=== PATIENT | male | born 1955 | race Caucasian/White ===

== ENCOUNTER 2023-01-26 09:52 | Outpatient (AMB) | payer BC, SELFPAY ==
[2023-01-26 09:55] VITALS: BP 152/82; PULSE 84; O2SAT 99; BMI 29.0
--- NOTE | 2023-01-26 09:55 | A.OFFPC_ITS ---
Vital Signs 01/26/23 09:55 Height 5 ft 7 in Weight 185 lb BMI 29.0 BP 152/82 H Blood Pressure Location Lt brachial Position Sitting Pulse 84 Pulse Source Pulse Oximeter Pulse Oximetry (%) 99 Oxygen Delivery Method Room Air Intake Visit Reasons: COMMERCIAL PILOT/BP Intake Note: Patient is here as a new patient, concerned about high blood pressure. Allergies No Known Allergies Allergy (Verified 01/26/23 10:00) Tobacco use date assessed: 01/26/23 Fall risk assessment: No Falls in past year Last assessed Fall Risk: 01/26/23 Dental Screening Dental Screen Date: 01/26/23 Did you have a dental visit in the last 12 months?: Yes Did you have a dental problem in the last 6 months where you did not have access to dental care?: No Was dental information given to patient?: Patient has dentist HPI COMMERCIAL PILOT/BP HPI Details New patient Prior PCP:?Dr. Quarles Last office visit/CPE: 2020 Acute issue(s): High blood pressures -BP today 152/82. ED -Has trialed viagra before. PMHx: DM, HLD, HTN SurgHx: Tonsils FHx: Denies SocHx: Nonsmoker, EtOH 3 beers daily. No drugs. [facility] Medical History (Updated 01/26/23 @ 10:58 by Sergo Lakhani) High cholesterol Glaucoma Surgical History (Updated 01/26/23 @ 10:05 by Sissy Sawyer CMA) History of tonsillectomy (Updated 01/26/23 @ 10:10 by Sissy Sawyer CMA) Household Members: None Housing: House Are you a primary eye care professional to a significant other at home: No Do you presently have visiting nurse or other home services: No 75 years or older and lives alone: No Alcohol intake: current Patient Tobacco Use Status: Never used Tobacco e-Cigarette/Vaping Use: Never Used Substance Use Type: Marijuana service: No Current occupational status: retired Cognitive needs: No Hearing needs: No Vision needs: Yes (Patient wears glasses.) Questionnaire PHQ-9 Over the last 2 weeks, how often have you been bothered by any of the following problems? 1. Little interest or pleasure in doing things: not at all 2. Feeling down, depressed, or hopeless: not at all 3. Trouble falling or staying asleep, or sleeping too much: not at all 4. Feeling tired or having little energy: not at all 5. Poor appetite or overeating: not at all 6. Feeling bad about yourself - or that you are a failure or have let yourself or your family down: not at all 7. Trouble concentrating on things, such as reading the newspaper or watching television: not at all 8. Moving or speaking so slowly that other people could have noticed. Or the opposite - being so fidgety or restless that you have been moving around a lot more than usual: not at all 9. Thoughts that you would be better off or of hurting yourself in some way: not at all Total score: 0 Source: Developed by Drs. Atilio Vega, Clarita Dorantes, Bello Irene and colleagues, with an educational donnell from [employer]. Thrive Questionnaire Date Thrive assessed: 01/26/23 I am a: Patient What is your living situation today?: I have a steady place to live Within the past 12 months, did the food you bought not last and you didn't have the money to get more?: Never true Within the past 12 months, did you worry whether your food would run out before you got money to buy more?: Never true Do you have trouble paying for medicines?: No Do you have trouble getting transportation to medical appointments?: No Do you have trouble paying your heating and electricity bill?: No Do you have trouble taking care of your child, family member or friend?: No Do you have trouble with day-to-day activities such as bathing, preparing meals, shopping, managing finances, etc.?: No Are you currently unemployed and looking for a job?: No Are you interested in more education?: No AUDIT C Alcohol Use Questionnaire (AUDIT-C) 1. How often do you have a drink containing alcohol?: 4 or more times a week 2. How many drinks containing alcohol do you have on a typical day when you are drinking?: 1 or 2 3. How often do you have six or more drinks on one occasion?: Never Total Score: 4 ADILENE-7 AMB Questionnaire ADILENE-7 Date ADILENE - 7 assessed: 01/26/23 Feeling nervous, anxious, or on edge: 0 = Not at all Not being able to stop or control worryin = Not at all Worrying too much about different things: 0 = Not at all Trouble relaxin = Not at all Being so restless that it is hard to sit still: 0 = Not at all Becoming easily annoyed or irritable: 0 = Not at all Feeling afraid as if something awful might happen: 0 = Not at all Total ADILENE-7 score (0-4 normal; 5-9 mild; 10-14 moderate; 15-21 severe): 0 Source: Developed by Drs. Atilio Vega, Clarita Dorantes, Bello Irene and colleagues, with an educational donnell from [employer]. Review of Systems Const Denies chills, Denies fatigue, Denies fever(s), Denies headache(s) and Denies weakness ENT Denies dizziness and Denies headache(s) Card Denies chest pain, Denies lightheadedness, Denies dyspnea and Denies other (Palpitations) Resp Denies cough, Denies dyspnea, Denies wheezing and Denies other ( shortness of breath) Musc Denies numbness and Denies tingling Neuro Denies dizziness, Denies headache(s), Denies numbness, Denies tingling, Denies paresthesias and Denies weakness Psych Denies anxiety and Denies depression Endo Denies fatigue Aller/Immun Denies wheezing Physical exam (Primary Care) Vital Signs: Last Vital Signs Pulse 84 01/26/23 09:55 BP 152/82 H 01/26/23 09:55 Pulse Ox 99 01/26/23 09:55 Oxygen Delivery Method Room Air 01/26/23 09:55 BMI result Body Mass Index 29.0 Tobacco/Smoking Status: Tobacco use Status Tobacco use date assessed 01/26/23 01/26/23 10:16 Patient Tobacco Use Status Never used Tobacco 01/26/23 10:16 e-Cigarette/Vaping Use Never Used 01/26/23 10:16 PHQ-9: PHQ-9 Score PHQ-9: Total score 0 01/26/23 10:46 Thrive Assessment: Date of Thrive Assessment Date Thrive assessed 01/26/23 01/26/23 10:16 Const General: no acute distress and well developed Nutritional Appearance: well nourished Orientation/consciousness: patient oriented x3 HENMT Head: Yes normocephalic and Yes atraumatic Eyes General: appearance normal, both eyes and all related structures Pupils: Equal, round and reactive pupils present EOM: EOMs intact bilaterally Resp Effort & Inspection: normal respiratory effort Auscultation: clear to auscultation bilaterally Cardio Rate: regular rate Rhythm: regular rhythm Heart sounds: S1 normal heart sound present, S2 normal heart sound present, no gallops, no murmurs and no rubs Neuro General: patient oriented x3 and gait normal Cranial nerves: Yes Equal, round and reactive pupils present Psych Affect: normal affect Office Procedures EKG [id number], Complete Assessment and Plan Assessment & Plan (1) Hypertension: Code(s): I10 - Essential (primary) hypertension Plan: Is?high?today.??Goal?is?less?than?140/90 EKG?shows?normal?sinus?rhythm?with?s inus?arrhythmia.??Left?axis?deviation.??No?ST-T-wave?changes. Will?give?him?a?script?for?lisinopril Encouraged?weight?loss?and?salt/sodium?avoidance (2) Hyperlipidemia: Code(s): E78.5 - Hyperlipidemia, unspecified Plan: History?of?hyperlipidemia?and?patient?had?used?pravastatin?in?the?past. Recheck?lipids (3) Diabetes: Code(s): E11.9 - Type 2 diabetes mellitus without complications Plan: Patient?notes?history?of?diabetes?or?elevated?fasting?blood?sugars?though?he?garcia s?note?he?had?had?A1c?test?around?6% Check?fasting?blood?sugar?and?A1c. He?notes?that?he?had?had?loose?stools?and?abdominal?discomfort?with?metformin. May?need?to?use?other?medications?if?blood?sugars?need?pharmacotherapy (4) Erectile dysfunction: Code(s): N52.9 - Male erectile dysfunction, unspecified Plan: Can?trial?sildenafil (5) Alcohol use: Code(s): Z78.9 - Other specified health status Plan: Drinking?about?3?beers?per?day?and?I?asked?him?to?wean?this?down.??Patient?agree s?to?try?to?decrease?this (6) Laboratory exam ordered as part of routine general medical examination: Code(s): Z00.00 - Encounter for general adult medical examination without abnormal findings Orders: Orders Lipid Panel Today Z00.00 - Encounter for general adult medical examination without abnormal findings Prostate Specific Antigen Scr Today Z12.5 - Encounter for screening for malignant neoplasm of prostate AMB EKG-In Office Today I10 - Essential (primary) hypertension Comprehensive [place]. Panel Fast Today Z00.00 - Encounter for general adult medical examination without abnormal findings Complete Blood Count Auto Diff Today Z00.00 - Encounter for general adult medical examination without abnormal findings Microalbumin, Random (w Creat) Today I10 - Essential (primary) hypertension TSH reflex Free T4 Today Z00.00 - Encounter for general adult medical examination without abnormal findings UA and rflx microscopic Today Z00.00 - Encounter for general adult medical examination without abnormal findings Hemoglobin A1c Today E11.9 - Type 2 diabetes mellitus without complications, R73.01 - Impaired fasting glucose Medications: New sildenafil administer 30 minutes to 4 hours before activity 25 mg PO DAILY PRN 6 tabs 3RF sexual activity 30 days lisinopril 20 mg PO DAILY 30 days 30 tabs 0RF Coding Level of Care Code New Pt Level 4 (40284) Diagnoses Hypertension I10 Hyperlipidemia E78.5 Diabetes E11.9 Erectile dysfunction N52.9 Alcohol use Z78.9 Laboratory exam ordered as part of routine general medical examination Z00.00 CPT Codes EKG - CPT: 18452-[id number], Complete ([id number])
== END 2023-01-26 11:38 | disposition home or self-care (01) ==
PROVIDERS: PCP Family Medicine; Visit Provider Family Medicine
DX: I10 Essential (primary) hypertension (principal); E78.5 Hyperlipidemia, unspecified; E11.9 Type 2 diabetes mellitus without complications; N52.9 Male erectile dysfunction, unspecified; Z78.9 Other specified health status; Z00.00 Encounter for general adult medical examination without abnormal findings
CPT/HCPCS: 93000; 99204

== ENCOUNTER 2023-03-11 11:22 | Outpatient (REF) | payer BC, SELFPAY ==
[2023-03-11 14:23] LABS: MANUAL DIFF FLAG NO
[2023-03-11 14:30] LABS: Basophils Absolute Auto 0.1 X10*3/uL (0.0-0.2); Eosinophils Absolute Auto 0.1 X10*3/uL (0.0-0.4); Eosinophils Percent Auto 0.9 % (0-4); Hemoglobin 15.5 g/dl (14.0-18.0); Imm Gran Abs Auto 0.04 X10*3/uL (0.00-0.03); Imm Gran Pct Auto 0.5 % (0.0-0.4); Lymphocytes Absolute Auto 1.8 X10*3/uL (1.2-4.9); Mean Corpuscular HGB Conc 33.7 g/dl (31.0-36.0); Mean Corpuscular Hemoglobin 30.9 pg (27.0-33.0); Mean Corpuscular Volume 91.6 fL (80.0-98.0); Mean Platelet Volume 11.1 fL (9.4-12.4); Monocytes Absolute Auto 0.8 X10*3/uL (0.1-1.2); Monocytes Percent Auto 9.8 % (2-11); Neutrophils Percent Auto 64.8 % (45-73); Platelet Count 436 X10*3/uL (160-400); Red Blood Count 5.02 X10*6/uL (4.60-5.80); Red Cell Distribution Width 13.6 % (11.0-16.0); White Blood Count 7.7 X10*3/uL (4.8-10.8)
[2023-03-11 14:32] LABS: Estimated Average Glucose 177 mg/dL; Hemoglobin A1c % 7.8 % (<6.0)
[2023-03-11 14:50] LABS: Alanine Aminotransferase 22 U/L (0-40); Albumin Level 4.4 g/dL (3.5-5.0); Alkaline Phosphatase 69 U/L (39-117); Anion Gap 17 (12-20); Aspartate Amino Transferase 20 U/L (5-37); Bilirubin Total 0.7 mg/dL (0.0-1.0); Blood Urea Nitrogen 9 mg/dL (9-16); Calcium 10.2 mg/dL (8.4-10.2); Carbon Dioxide 24 mmol/L (22-29); Chloride 102 mmol/L (96-108); Cholesterol 209 mg/dL (<200); Estimated Glomerular Filt Rate 52; Glucose Fasting 213 mg/dL (60-99); HDL Cholesterol 42 mg/dL (>40); LDL Cholesterol Calculated 132 mg/dL (<100); Potassium 4.7 mmol/L (3.3-5.1); Sodium 138 mmol/L (135-145); Total Protein 7.7 g/dL (6.5-8.0); Triglycerides 178 mg/dL (<150)
[2023-03-11 14:54] LABS: Prostate Specific Antigen Scr 2.23 ng/mL (<0.05-4.0)
[2023-03-11 15:07] LABS: TSH reflex Free T4 1.28 uIU/mL (0.32-4.0)
== END 2023-03-11 11:23 | disposition home or self-care (01) ==
LOC: HO.WFDLDS 11:22
PROVIDERS: Visit Provider Family Medicine
DX: Z00.00 Encounter for general adult medical examination without abnormal findings (principal); Z12.5 Encounter for screening for malignant neoplasm of prostate; E11.9 Type 2 diabetes mellitus without complications
CPT/HCPCS: 36415; 80053; 80061; 83036; 84153; 84443; 85025

== ENCOUNTER 2023-05-19 08:52 | Outpatient (AMB) | payer BC, SELFPAY ==
[2023-05-19 08:59] VITALS: BP 136/72; PULSE 88; O2SAT 98; BMI 29.5
--- NOTE | 2023-05-19 08:59 | MHC.PC.OV ---
Vital Signs 05/19/23 08:59 Height 5 ft 7 in Weight 188 lb 2 oz BMI 29.5 BP 136/72 Blood Pressure Location Lt brachial Position Sitting Pulse 88 Pulse Source Pulse Oximeter Pulse Oximetry (%) 98 Oxygen Delivery Method Room Air Intake Visit Reasons: CPE Intake Note: Patient is here for a physical, and needs dental paperwork filled out. Allergies No Known Allergies Allergy (Verified 05/19/23 09:11) Tobacco use date assessed: 05/19/23 Fall risk assessment: No Falls in past year Last assessed Fall Risk: 05/19/23 Dental Screening Dental Screen Date: 05/19/23 Did you have a dental visit in the last 12 months?: Yes Did you have a dental problem in the last 6 months where you did not have access to dental care?: No Was dental information given to patient?: Patient has dentist HPI CPE HPI Details 67 y/o male presents for a CPE with f/u labs and health maintenance. Labs were drawn 03/11/23. Reviewed labs with pt. A1c 7.8%. Triglycerides 178. TC 209. LDL 132. HDL 42. PFSH Medical History High cholesterol Glaucoma Surgical History History of tonsillectomy Social History Household Members: None Housing: House Are you a primary pharmacy customer care specialist to a significant other at home: No Do you presently have visiting nurse or other home services: No 75 years or older and lives alone: No Alcohol intake: current Comment: 3 beers a day. Patient Tobacco Use Status: Never used Tobacco e-Cigarette/Vaping Use: Never Used Substance Use Type: Marijuana service: No Current occupational status: retired Cognitive needs: No Hearing needs: No Vision needs: Yes (Patient wears glasses.) Questionnaire PHQ-9 Over the last 2 weeks, how often have you been bothered by any of the following problems? 1. Little interest or pleasure in doing things: not at all 2. Feeling down, depressed, or hopeless: not at all 3. Trouble falling or staying asleep, or sleeping too much: not at all 4. Feeling tired or having little energy: not at all 5. Poor appetite or overeating: not at all 6. Feeling bad about yourself - or that you are a failure or have let yourself or your family down: not at all 7. Trouble concentrating on things, such as reading the newspaper or watching television: not at all 8. Moving or speaking so slowly that other people could have noticed. Or the opposite - being so fidgety or restless that you have been moving around a lot more than usual: not at all 9. Thoughts that you would be better off or of hurting yourself in some way: not at all Total score: 0 Source: Developed by Drs. Atilio Vega, Clarita Dorantes, Bello Irene and colleagues, with an educational donnell from [employer]. Thrive Questionnaire Date Thrive assessed: 05/19/23 I am a: Patient What is your living situation today?: I have a steady place to live Within the past 12 months, did the food you bought not last and you didn't have the money to get more?: Never true Within the past 12 months, did you worry whether your food would run out before you got money to buy more?: Never true Do you have trouble paying for medicines?: No Do you have trouble getting transportation to medical appointments?: No Do you have trouble paying your heating and electricity bill?: No Do you have trouble taking care of your child, family member or friend?: No Do you have trouble with day-to-day activities such as bathing, preparing meals, shopping, managing finances, etc.?: No Are you currently unemployed and looking for a job?: No Are you interested in more education?: No THRIVE Score: 0 AUDIT C Alcohol Use Questionnaire (AUDIT-C) 1. How often do you have a drink containing alcohol?: 4 or more times a week 2. How many drinks containing alcohol do you have on a typical day when you are drinking?: 1 or 2 3. How often do you have six or more drinks on one occasion?: Never Total Score: 4 ADILEEN-7 AMB Questionnaire ADILENE-7 Date ADILENE - 7 assessed: 05/19/23 Feeling nervous, anxious, or on edge: 0 = Not at all Not being able to stop or control worryin = Not at all Worrying too much about different things: 0 = Not at all Trouble relaxin = Not at all Being so restless that it is hard to sit still: 0 = Not at all Becoming easily annoyed or irritable: 0 = Not at all Feeling afraid as if something awful might happen: 0 = Not at all Total ADILENE-7 score (0-4 normal; 5-9 mild; 10-14 moderate; 15-21 severe): 0 Source: Developed by Drs. Atilio Vega, Clariat Dorantes, Bello Irene and colleagues, with an educational donnell from [employer]. Review of Systems Const Denies chills, Denies fatigue, Denies fever(s), Denies headache(s) and Denies weakness Eyes Denies change in vision ENT Denies dizziness, Denies headache(s), Denies hearing loss, Denies nasal congestion, Denies sinus pain, Denies sinus pressure and Denies sore throat Card Denies chest pain, Denies lightheadedness, Denies dyspnea and Denies other (palpitations) Resp Denies cough, Denies dyspnea and Denies wheezing GI Denies abdominal pain, Denies melena, Denies hematochezia, Denies change in bowel habits, Denies dyspepsia and Denies nausea Denies hematuria and Denies dysuria Musc Denies abnormal gait, Denies myalgias, Denies arthralgias, Denies numbness and Denies tingling Skin/Breast Denies rash, Denies unusual bruising and Denies wounds Neuro Denies abnormal gait, Denies dizziness, Denies headache(s), Denies memory loss, Denies numbness, Denies Sensory deficit (Neuro), Denies tingling and Denies weakness Psych Denies anxiety, Denies depression and Denies memory loss Endo Denies cold intolerance, Denies fatigue, Denies heat intolerance, Denies polydipsia and Denies polyuria North/Lymph Denies easy bleeding and Denies easy bruising Aller/Immun Denies wheezing Physical exam (Primary Care) Vital Signs: Last Vital Signs Pulse 88 05/19/23 08:59 BP 136/72 05/19/23 08:59 Pulse Ox 98 05/19/23 08:59 Oxygen Delivery Method Room Air 05/19/23 08:59 BMI result Body Mass Index 29.5 Tobacco/Smoking Status: Tobacco use Status Tobacco use date assessed 05/19/23 05/19/23 09:11 Patient Tobacco Use Status Never used Tobacco 05/19/23 09:11 e-Cigarette/Vaping Use Never Used 05/19/23 09:11 PHQ-9: PHQ-9 Score PHQ-9: Total score 0 05/19/23 09:36 Thrive Assessment: Date of Thrive Assessment Date Thrive assessed 05/19/23 05/19/23 09:11 Const General: no acute distress, well developed, alert and awake Nutritional Appearance: well nourished Orientation/consciousness: patient oriented x3 HENMT Head: Yes normocephalic and Yes atraumatic Ears: hearing grossly normal bilaterally and TM's normal bilaterally General nose exam: Normal external nose present and Normal nares present Mouth: Normal oral and palatal mucosa present and moist mucous membranes Teeth and gingiva: dentition normal Throat: Yes posterior oropharynx normal Eyes General: appearance normal, both eyes and all related structures Pupils: Equal, round and reactive pupils present and Pupil accommodation reflex normal EOM: EOMs intact bilaterally Neck Neck: Yes normal visual inspection, Yes no lymphadenopathy and Yes trachea midline Thyroid: Thyroid normal Carotids: no bruits Lymphatic: no lymphadenopathy noted Chest Chest palpation & inspection: normal inspection of the chest Resp Effort & Inspection: normal respiratory effort Auscultation: clear to auscultation bilaterally Cardio Rate: regular rate Rhythm: regular rhythm Heart sounds: S1 normal heart sound present, S2 normal heart sound present, no gallops, no murmurs and no rubs Bruits: no abdominal aortic bruits and no carotid bruits GI Palpation (GI): No Abdominal aortic bruit present, Soft to palpation, nontender, No hepatosplenomegaly present and No Rebound tenderness present Auscultation: normal bowel sounds General: Yes no CVA tenderness Back/Spine/Pelvis Back: no CVA tenderness Cervical Spine: cervical ROM normal and No Cervical spine tenderness Thoracic/Lumbar Spine: thoraco-lumbar ROM normal, No pain with thoraco-lumbar ROM, No thoracic spinal tenderness and No lumbar spinal tenderness Skin Lesions: no lesions Rashes: no rashes Trauma: no lacerations or abrasions Wounds: no wounds Nails: normal Neuro General: patient oriented x3 Cranial nerves: Yes Equal, round and reactive pupils present Cognition (Neuro): normal cognition Gait exam (Neuro): Normal gait present Motor exam (neuro): 5/5 motor strength present throughout Sensory Exam: No Sensory deficit (Neuro) Deep tendon reflexes (DTR's): Right patellar reflex intensity grade: 2+ and Left patellar reflex intensity grade: 2+ Extrem General: Yes normal to inspection and No edema Psych Appearance: grossly normal Affect: normal affect Attitude: cooperative Thought process: Normal thought process present Assessment and Plan Assessment & Plan (1) Adult general medical examination: Code(s): Z00.00 - Encounter for general adult medical examination without abnormal findings Plan: 67-year-old?male?presents?for?complete?physical?exam (2) Diabetes: Code(s): E11.9 - Type 2 diabetes mellitus without complications Plan: A1c?7.8%.??Goal?is?less?than?7.0% He?had?been?on?metformin?before?and?we?will?restart?this. (3) Hyperlipidemia: Code(s): E78.5 - Hyperlipidemia, unspecified Plan: LDL?cholesterol?too?high?for?patient?with?diabetes. Start?atorvastatin (4) Hypertension: Code(s): I10 - Essential (primary) hypertension Plan: Blood?pressure?is?improved?from?last?check.??Patient's?blood?pressures?in?the?community?are?still?going?too?high. Will?change?to?lisinopril?hydrochlorothiazide (5) Cerumen debris on tympanic membrane: Code(s): H61.20 - Impacted cerumen, unspecified ear Plan: Can?try?Debrox?drops (6) Screening for colon cancer: Code(s): Z12.11 - Encounter for screening for malignant neoplasm of colon Plan: Patient?declines?colonoscopy Ordered?Cologuard?test (7) Screening for prostate cancer: Code(s): Z12.5 - Encounter for screening for malignant neoplasm of prostate Plan: PSA?was?within?normal?limits Orders: Orders Hemoglobin A1c Today E11.9 - Type 2 diabetes mellitus without complications, R73.01 - Impaired fasting glucose Comprehensive [place]. Panel Fast Today I10 - Essential (primary) hypertension, Z00.00 - Encounter for general adult medical examination without abnormal findings Lipid Panel Today E78.5 - Hyperlipidemia, unspecified, Z00.00 - Encounter for general adult medical examination without abnormal findings Microalbumin, Random (w Creat) Today I10 - Essential (primary) hypertension Referrals Cologuard Test Z12.11 - Encounter for screening for malignant neoplasm of colon, Z12.12 - Encounter for screening for malignant neoplasm of rectum Medications: New atorvastatin 20 mg PO BEDTIME 90 days 90 tabs 2RF lisinopril-hydrochlorothiazide 20-12.5 mg 1 tab PO DAILY 90 days 90 tabs 2RF metformin 250 mg (1/2 x 500 mg) PO BID 90 days 90 tabs 2RF Discontinued lisinopril Discontinued Reason: Doctor's Order 20 mg PO DAILY 30 days 30 tabs 0RF Coding Level of Care Code Est Pt Level 4 (02358) Est Pt Prev Care >65y(68316) Diagnoses Adult general medical examination Z00.00 Diabetes E11.9 Hyperlipidemia E78.5 Hypertension I10 Cerumen debris on tympanic membrane H61.20 Screening for colon cancer Z12.11 Screening for prostate cancer Z12.5
== END 2023-05-19 10:09 | disposition home or self-care (01) ==
PROVIDERS: PCP Family Medicine; Visit Provider Family Medicine
DX: Z00.00 Encounter for general adult medical examination without abnormal findings (principal); E11.9 Type 2 diabetes mellitus without complications; E78.5 Hyperlipidemia, unspecified; I10 Essential (primary) hypertension
CPT/HCPCS: 99397

== ENCOUNTER 2023-08-11 12:06 | Outpatient (REF) | payer BC, SELFPAY ==
[2023-08-11 14:28] LABS: Appearance Urine Clear; Color Urine Yellow; Glucose Urine UA Negative (Negative); Leukocyte Esterase Urine Negative (Negative); Nitrite Urine Negative (Negative); PH 5.5 (5.0-9.0); Urine Blood Negative (Negative); Urine Ketones Negative (Negative); Urine Protein Negative (Neg-Trace)
[2023-08-11 14:37] LABS: Estimated Average Glucose 166 mg/dL; Hemoglobin A1c % 7.4 % (<6.0)
[2023-08-11 14:45] LABS: Alanine Aminotransferase 19 U/L (0-40); Albumin Level 4.3 g/dL (3.5-5.0); Alkaline Phosphatase 60 U/L (39-117); Anion Gap 12 (12-20); Aspartate Amino Transferase 15 U/L (5-37); Bilirubin Total 0.7 mg/dL (0.0-1.0); Blood Urea Nitrogen 15 mg/dL (9-16); Carbon Dioxide 26 mmol/L (22-29); Chloride 102 mmol/L (96-108); Cholesterol 122 mg/dL (<200); Estimated Glomerular Filt Rate 48; Glucose Fasting 146 mg/dL (60-99); HDL Cholesterol 48 mg/dL (>40); LDL Cholesterol Calculated 55 mg/dL (<100); Potassium 4.6 mmol/L (3.3-5.1); Sodium 135 mmol/L (135-145); Total Protein 7.2 g/dL (6.5-8.0); Triglycerides 97 mg/dL (<150)
[2023-08-11 14:51] LABS: Creatinine Urine 61.84 mg/dL; Microalbumin Urine < 5.0 mg/L
== END 2023-08-11 12:07 | disposition home or self-care (01) ==
LOC: HO.WFDLDS 12:06
PROVIDERS: Visit Provider Family Medicine
DX: Z00.00 Encounter for general adult medical examination without abnormal findings (principal); I10 Essential (primary) hypertension; E78.5 Hyperlipidemia, unspecified; R73.01 Impaired fasting glucose; E11.9 Type 2 diabetes mellitus without complications
CPT/HCPCS: 36415; 80053; 80061; 81003; 82570; 83036

== ENCOUNTER 2023-09-08 08:19 | Outpatient (AMB) | payer BC, SELFPAY ==
--- NOTE | 2023-09-08 08:27 | MHC.PC.OV ---
Vital Signs 09/08/23 08:31 Height 5 ft 7 in Weight 187 lb BMI 29.3 BP 120/62 Blood Pressure Location Lt brachial Position Sitting Respiration 12 Pulse 93 Pulse Source Pulse Oximeter Pulse Oximetry (%) 99 Oxygen Delivery Method Room Air Intake Visit Reasons: f/u diabetes, hypertension Intake Note: Patient is here to follow up for hypertension and diabetes, patient's last A1C was on 08/11/23 with a result of 7.4. 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 Had started him on artovastatin and metformin last office visit. Last A1c 08/11/23 7.4%. Blood pressure today 120/62. He is on lisinopril-hydrochlorothiazide 20-12.5mg daily. Labs were drawn 08/11/23. Reviewed labs with pt. Triglycerides improved from 178 to 97. TC 209 to 122. LDL 132 to 55. HDL 48. [facility] Medical History High cholesterol Glaucoma Surgical History History of tonsillectomy Social History Household Members: None Housing: House Are you a primary animal care giver to a significant other at home: No Do you presently have visiting nurse or other home services: No 75 years or older and lives alone: No Alcohol intake: current Comment: 3 beers a day. Patient Tobacco Use Status: Never used Tobacco e-Cigarette/Vaping Use: Never Used Substance Use Type: Marijuana service: No Current occupational status: retired Cognitive needs: No Hearing needs: No Vision needs: Yes (Patient wears glasses.) Questionnaire Thrive Questionnaire Date Thrive assessed: 05/19/23 ADILENE-7 AMB Questionnaire ADILENE-7 Date ADILENE - 7 assessed: 05/19/23 Source: Developed by Drs. Atilio Vega, Clarita Dorantes, Bello Irene and colleagues, with an educational donnell from [employer]. Review of Systems Const Denies chills, Denies fatigue, Denies fever(s), Denies headache(s) and Denies weakness ENT Denies dizziness and Denies headache(s) Card Denies dyspnea Resp Denies cough, Denies dyspnea, Denies wheezing and Denies other (shortness of breath) Musc Denies numbness and Denies tingling Neuro Denies dizziness, Denies headache(s), Denies numbness, Denies tingling and Denies weakness Psych Denies anxiety and Denies depression Endo Denies fatigue Aller/Immun Denies wheezing Physical exam (Primary Care) Vital Signs: Last Vital Signs Pulse 93 09/08/23 08:31 Resp 12 09/08/23 08:31 BP 120/62 09/08/23 08:31 Pulse Ox 99 09/08/23 08:31 Oxygen Delivery Method Room Air 09/08/23 08:31 BMI result Body Mass Index 29.3 Tobacco/Smoking Status: Tobacco use Status Tobacco use date assessed 05/19/23 09/08/23 08:28 Patient Tobacco Use Status Never used Tobacco 09/08/23 08:28 e-Cigarette/Vaping Use Never Used 09/08/23 08:28 Thrive Assessment: Date of Thrive Assessment Date Thrive assessed 05/19/23 09/08/23 08:28 Const General: well developed; No acute distress Nutritional Appearance: well nourished Orientation/consciousness: patient oriented x3 [facility] Head: Yes normocephalic and Yes atraumatic Eyes General: appearance normal, both eyes and all related structures Pupils: Equal, round and reactive pupils present EOM: EOMs intact bilaterally Resp Effort & Inspection: normal respiratory effort Neuro General: patient oriented x3 and gait normal Cranial nerves: Yes Equal, round and reactive pupils present Psych Affect: normal affect Assessment and Plan Assessment & Plan (1) Diabetes: Code(s): E11.9 - Type 2 diabetes mellitus without complications Plan: She?has?improved?from?7.8%?to?7.5%?with?addition?of?250?mg?of?metformin. Mild?increase?in?creatinine?level?but?still?less?than?1.5 - will?monitor Encouraged?diet?lower?in?sugars?and?starches Will?ask?the?nurse?navigator?to?discuss?diet?with?patient (2) Hyperlipidemia: Code(s): E78.5 - Hyperlipidemia, unspecified Plan: Lipids?are?much?improved?and?at?goal Continue?atorvastatin (3) Hypertension: Code(s): I10 - Essential (primary) hypertension Plan: Blood?pressure?is?controlled.??Goal?is?less?than?140/90 Continue?current?medication Mild?increase?in?creatinine?level?but?less?than?1.5 - will?monitor Advised?patient?increase?hydration (4) Screening for colon cancer: Code(s): Z12.11 - Encounter for screening for malignant neoplasm of colon Plan: Has?not?gotten?Cologuard?test?yet?but?I?encouraged?him?to?do?so (5) Erectile dysfunction: Code(s): N52.9 - Male erectile dysfunction, unspecified Plan: Patient?tried?sildenafil?25?mg?daily?and?did?not?think?it?helped?much Will?increase?to?50?mg?daily If?not?helping?new?dose,?will?switch?to?[facility] Orders: Orders Comprehensive [place]. Panel Fast Today E11.9 - Type 2 diabetes mellitus without complications, Z00.00 - Encounter for general adult medical examination without abnormal findings Hemoglobin A1c Today E11.9 - Type 2 diabetes mellitus without complications, R73.01 - Impaired fasting glucose Lipid Panel Today E78.5 - Hyperlipidemia, unspecified, Z00.00 - Encounter for general adult medical examination without abnormal findings Referrals Nurse Navigator Referral E11.9 - Type 2 diabetes mellitus without complications Medications: Changed From sildenafil administer 30 minutes to 4 hours before activity 25 mg PO DAILY 30 days PRN 6 tabs 3RF sexual activity To sildenafil administer 30 minutes to 4 hours before activity 50 mg PO DAILY 30 days PRN 10 tabs 3RF sexual activity Coding Level of Care Code Est Pt Level 4 (74104) Diagnoses Diabetes E11.9 Hyperlipidemia E78.5 Hypertension I10 Screening for colon cancer Z12.11 Erectile dysfunction N52.9
[2023-09-08 08:31] VITALS: BP 120/62; PULSE 93; RESP 12; O2SAT 99; BMI 29.3
== END 2023-09-08 09:03 | disposition home or self-care (01) ==
PROVIDERS: PCP Family Medicine; Visit Provider Family Medicine
DX: E11.9 Type 2 diabetes mellitus without complications (principal); E78.5 Hyperlipidemia, unspecified; I10 Essential (primary) hypertension; Z12.11 Encounter for screening for malignant neoplasm of colon; N52.9 Male erectile dysfunction, unspecified
CPT/HCPCS: 99214

== ENCOUNTER 2023-12-22 13:23 | Outpatient (REF) | payer BC, SELFPAY ==
[2023-12-22 14:38] LABS: Estimated Average Glucose 163 mg/dL; Hemoglobin A1C 171.5978 umol/L; Hemoglobin A1c % 7.3 % (<6.0); Total Hemoglobin (HGBA1C) 3038.8671 umol/L
[2023-12-22 14:55] LABS: Alanine Aminotransferase 24 U/L (0-40); Albumin Level 4.6 g/dL (3.5-5.0); Alkaline Phosphatase 59 U/L (39-117); Anion Gap 11 (12-20); Aspartate Amino Transferase 20 U/L (5-37); Bilirubin Total 0.5 mg/dL (0.0-1.0); Blood Urea Nitrogen 24 mg/dL (9-16); Calcium 10.3 mg/dL (8.4-10.2); Carbon Dioxide 26 mmol/L (22-29); Chloride 104 mmol/L (96-108); Cholesterol 137 mg/dL (<200); Estimated Glomerular Filt Rate 33; Glucose Fasting 146 mg/dL (60-99); HDL Cholesterol 47 mg/dL (>40); LDL Cholesterol Calculated 63 mg/dL (<100); Sodium 136 mmol/L (135-145); Total Protein 7.4 g/dL (6.5-8.0); Triglycerides 138 mg/dL (<150)
[2023-12-22 18:25] LABS: Creatinine Urine 103.38 mg/dL; Microalbum/Creatinine Ratio Ur 6.7 ug/mg cr (<30)
== END 2023-12-22 13:24 | disposition home or self-care (01) ==
LOC: HO.WFDLDS 13:23
PROVIDERS: Visit Provider Family Medicine
DX: Z00.00 Encounter for general adult medical examination without abnormal findings (principal); E11.9 Type 2 diabetes mellitus without complications; E78.5 Hyperlipidemia, unspecified; I10 Essential (primary) hypertension
CPT/HCPCS: 36415; 80053; 80061; 82043; 82570; 83036

== ENCOUNTER 2024-01-12 08:25 | Outpatient (AMB) | payer BC, SELFPAY ==
--- NOTE | 2024-01-12 08:34 | A.OFFPC_ITS ---
Vital Signs 01/12/24 08:40 Height 5 ft 7 in Weight 197 lb 6 oz BMI 30.9 BP 130/66 Blood Pressure Location Rt brachial Position Sitting Respiration 14 Pulse 84 Pulse Source Pulse Oximeter Temp 98.5 F Temp Source Oral Pulse Oximetry (%) 97 Oxygen Delivery Method Room Air Intake Visit Reasons: check up blood pressure/sugar Intake Note: f/u for B/P & DM Allergies No Known Allergies Allergy (Verified 01/12/24 08:39) Tobacco use date assessed: 05/19/23 Dental Screening Dental Screen Date: 05/19/23 HPI check up blood pressure/sugar HPI Details 68 y/o male presents to f/u HTN, sugars. BP today 130/66, 84p. He is on lisinopril-HCTZ 20-12.5mg daily. He is on metformin 250mg b.i.d. for his diabetes. Labs drawn 12/22/23. Reviewed labs with pt. Creatinine level worsened from 1.45 to 2.01. A1c 7.3%. Triglycerides 138. TC 137. LDL 63. HDL 47. Has complaints of muscle cramps. [facility] Medical History High cholesterol Glaucoma Surgical History History of tonsillectomy Social History Household Members: None Housing: House Are you a primary day care teacher to a significant other at home: No Do you presently have visiting nurse or other home services: No 75 years or older and lives alone: No Alcohol intake: current Comment: 3 beers a day. Patient Tobacco Use Status: Never used Tobacco e-Cigarette/Vaping Use: Never Used Substance Use Type: Marijuana service: No Current occupational status: retired Cognitive needs: No Hearing needs: No Vision needs: Yes (Patient wears glasses.) Questionnaire PHQ-9 Over the last 2 weeks, how often have you been bothered by any of the following problems? 1. Little interest or pleasure in doing things: not at all 2. Feeling down, depressed, or hopeless: not at all 3. Trouble falling or staying asleep, or sleeping too much: not at all 4. Feeling tired or having little energy: not at all 5. Poor appetite or overeating: not at all 6. Feeling bad about yourself - or that you are a failure or have let yourself or your family down: not at all 7. Trouble concentrating on things, such as reading the newspaper or watching television: not at all 8. Moving or speaking so slowly that other people could have noticed. Or the opposite - being so fidgety or restless that you have been moving around a lot more than usual: not at all 9. Thoughts that you would be better off or of hurting yourself in some way: not at all Total score: 0 Source: Developed by Drs. Atilio Vega, Clarita Dorantes, Bello Irene and colleagues, with an educational donnell from [employer]. Thrive Questionnaire Date Thrive assessed: 05/19/23 I am a: Patient What is your living situation today?: I have a steady place to live Within the past 12 months, did the food you bought not last and you didn't have the money to get more?: Never true Within the past 12 months, did you worry whether your food would run out before you got money to buy more?: Never true Do you have trouble paying for medicines?: No Do you have trouble getting transportation to medical appointments?: No Do you have trouble paying your heating and electricity bill?: No Do you have trouble taking care of your child, family member or friend?: No Do you have trouble with day-to-day activities such as bathing, preparing meals, shopping, managing finances, etc.?: No Are you currently unemployed and looking for a job?: I choose not to answer this question Are you interested in more education?: No Please select the resources that you would like help with: None Currently or been in a relationship where the following occur: No concerns reported THRIVE Score: 0 AUDIT C Alcohol Use Questionnaire (AUDIT-C) 1. How often do you have a drink containing alcohol?: 4 or more times a week 2. How many drinks containing alcohol do you have on a typical day when you are drinking?: 1 or 2 3. How often do you have six or more drinks on one occasion?: Never Total Score: 4 ADILENE-7 AMB Questionnaire ADILENE-7 Date ADILENE - 7 assessed: 05/19/23 Feeling nervous, anxious, or on edge: 0 = Not at all Not being able to stop or control worryin = Not at all Worrying too much about different things: 0 = Not at all Trouble relaxin = Not at all Being so restless that it is hard to sit still: 0 = Not at all Becoming easily annoyed or irritable: 0 = Not at all Feeling afraid as if something awful might happen: 0 = Not at all Total ADILENE-7 score (0-4 normal; 5-9 mild; 10-14 moderate; 15-21 severe): 0 Source: Developed by Drs. Atilio Vega, Clarita Dorantes, Bello Irene and colleagues, with an educational donnell from [employer]. Review of Systems Const Denies chills, Denies fatigue, Denies fever(s), Denies headache(s) and Denies weakness ENT Denies dizziness and Denies headache(s) Card Denies dyspnea Resp Denies cough, Denies dyspnea, Denies wheezing and Denies other (shortness of breath) Musc Denies numbness and Denies tingling Neuro Denies dizziness, Denies headache(s), Denies numbness, Denies tingling and Denies weakness Psych Denies anxiety and Denies depression Endo Denies fatigue Aller/Immun Denies wheezing Physical exam (Primary Care) Vital Signs: Last Vital Signs Temp 98.5 F 01/12/24 08:40 Pulse 84 01/12/24 08:40 Resp 14 01/12/24 08:40 BP 130/66 01/12/24 08:40 Pulse Ox 97 01/12/24 08:40 Oxygen Delivery Method Room Air 01/12/24 08:40 BMI result Body Mass Index 30.9 Tobacco/Smoking Status: Tobacco use Status Tobacco use date assessed 05/19/23 01/12/24 08:35 Patient Tobacco Use Status Never used Tobacco 01/12/24 08:35 e-Cigarette/Vaping Use Never Used 01/12/24 08:35 PHQ-9: PHQ-9 Score PHQ-9: Total score 0 01/12/24 08:35 Thrive Assessment: Date of Thrive Assessment Date Thrive assessed 05/19/23 01/12/24 08:35 Currently or been in a relationship where the following occur: No concerns reported Const General: well developed; No acute distress Nutritional Appearance: well nourished Orientation/consciousness: patient oriented x3 HENMT Head: Yes normocephalic and Yes atraumatic Eyes General: appearance normal, both eyes and all related structures Pupils: Equal, round and reactive pupils present EOM: EOMs intact bilaterally Resp Effort & Inspection: normal respiratory effort Auscultation: clear to auscultation bilaterally Cardio Rate: regular rate Rhythm: regular rhythm Heart sounds: S1 normal heart sound present, S2 normal heart sound present, no gallops, no murmurs and no rubs Neuro General: patient oriented x3 and gait normal Cranial nerves: Yes Equal, round and reactive pupils present Psych Affect: normal affect Coding Level of Care Code Est Pt Level 4 (36537) Diagnoses Hypertension I10 Hyperlipidemia E78.5 Diabetes E11.9 Renal failure N19 Muscle cramps R25.2 Assessment & Plan Assessment & Plan (1) Hypertension: Code(s): I10 - Essential (primary) hypertension Category: Medical Plan: Blood?pressure?is?controlled?however?creatinine?level?has?climbed?significantly. .??Hydrochlorothiazide?and ?will?switch?to?amlodipine.??He?will?continue?lisinopril?for?now. Recheck?kidney?function?in?a?month (2) Hyperlipidemia: Code(s): E78.5 - Hyperlipidemia, unspecified Category: Medical Plan: Lipids?appear?well?controlled?on?atorvastatin Continue?current?medication (3) Diabetes: Code(s): E11.9 - Type 2 diabetes mellitus without complications Category: Medical Plan: A1c?has?improved?but?is?still?above?goal?of?7.0 Continue?metformin Added?a?small?dose?of?glipizide?in?the?morning (4) Renal failure: Code(s): N19 - Unspecified kidney failure Category: Medical Plan: As?above,?creatinine?level?has?risen?since?addition?metformin?and?hydrochlorothi azide. Stopping?hydrochlorothiazide Will?recheck?his?creatinine?level?in?about?3-4?weeks. (5) Muscle cramps: Code(s): R25.2 - Cramp and spasm Category: Medical Plan: Hydrate?well Encouraged?stretching?and?pre?heating?muscles?before?walking. Orders: Orders Basic Metabolic Panel Today N19 - Unspecified kidney failure, Z00.00 - Encounter for general adult medical examination without abnormal findings Medications: New glipizide ER 2.5 mg PO QAM 90 days 90 tabs 2RF amlodipine 5 mg PO DAILY 90 days 90 tabs 2RF Changed From lisinopril 20 mg PO DAILY 30 tabs 0RF 30 days To lisinopril 20 mg PO DAILY 90 days 90 tabs 2RF Discontinued lisinopril-hydrochlorothiazide 20-12.5 mg Discontinued Reason: Doctor's Order 1 tab PO DAILY 90 days 90 tabs 2RF
[2024-01-12 08:40] VITALS: BP 130/66; PULSE 84; RESP 14; TEMP 36.9; O2SAT 97; BMI 30.9
== END 2024-01-12 09:17 | disposition home or self-care (01) ==
PROVIDERS: PCP Family Medicine; Visit Provider Family Medicine
DX: I10 Essential (primary) hypertension (principal); E78.5 Hyperlipidemia, unspecified; E11.9 Type 2 diabetes mellitus without complications; N19 Unspecified kidney failure; R25.2 Cramp and spasm

== ENCOUNTER → 2024-01-12 08:25 | Outpatient (BNVA) | payer BC, SELFPAY | PROVIDERS: PCP Family Medicine; Visit Provider Family Medicine ==

== ENCOUNTER 2024-02-08 11:59 | Outpatient (REF) | payer MEDICARE, SELFPAY ==
[2024-02-08 13:11] LABS: Anion Gap 15 (12-20); Blood Urea Nitrogen 22 mg/dL (9-16); Calcium 10.1 mg/dL (8.4-10.2); Carbon Dioxide 21 mmol/L (22-29); Chloride 105 mmol/L (96-108); Estimated Glomerular Filt Rate 33; Glucose Random 136 mg/dL (60-115); Potassium 4.8 mmol/L (3.3-5.1); Sodium 136 mmol/L (135-145)
== END 2024-02-08 12:00 | disposition home or self-care (01) ==
LOC: HO.LAB 11:59
PROVIDERS: PCP Family Medicine; Visit Provider Family Medicine
DX: Z00.00 Encounter for general adult medical examination without abnormal findings (principal); N19 Unspecified kidney failure
CPT/HCPCS: 36415; 80048

== ENCOUNTER → 2024-02-12 16:30 | Outpatient (AMB) | payer MEDICARE, SELFPAY ==
--- NOTE | 2024-02-12 16:25 | A.OFFPC_ITS ---
Intake Visit Reasons: f/u labs via telemedicine Intake Note: Follow up lab results. Allergies No Known Allergies Allergy (Verified 02/12/24 16:26) Tobacco use date assessed: 02/12/24 Dental Screening Dental Screen Date: 05/19/23 HPI f/u labs via telemedicine HPI Details 68 y/o male presents to f/u labs, meds v ia telemedicine. Had stopped his hydrochlorothiazide and added amlodipine. Labs drawn 02/08/24. Reviewed labs with pt. Creatinine level 2.02, prior creatinine 2.01. HPI Comments History of Present Illness Details Documentation assistance for Tavo Cortez MD, was provided by Sergo Lakhani,? Pharmacogeneticist on 02/12/2024 at 4:57 PM EST. I, Dr. Cortez, have read, observed, and verified documentation. ?? [facility] Medical History (Updated 01/12/24 @ 08:59 by Sergo Lakhani) High cholesterol Glaucoma Surgical History H/O tooth extraction History of tonsillectomy Social History (Updated 02/12/24 @ 16:28 by Jinny Davies CMA) Household Members: None Housing: House Are you a primary healthcare advisory services manager to a significant other at home: No Do you presently have visiting nurse or other home services: No 75 years or older and lives alone: No Alcohol intake: current Comment: 3 beers a day. Patient Tobacco Use Status: Never used Tobacco e-Cigarette/Vaping Use: Never Used Substance Use Type: Marijuana service: No Current occupational status: retired Cognitive needs: No Hearing needs: No Vision needs: Yes (Patient wears glasses.) Questionnaire Thrive Questionnaire Date Thrive assessed: 05/19/23 ADILENE-7 AMB Questionnaire ADILENE-7 Date ADILENE - 7 assessed: 05/19/23 Source: Developed by Drs. Atilio Vega, Clarita Dorantes, Bello Irene and colleagues, with an educational donnell from [employer]. Review of Systems Const Denies chills, Denies fatigue, Denies fever(s), Denies headache(s) and Denies weakness ENT Denies dizziness and Denies headache(s) Card Denies dyspnea Resp Denies cough, Denies dyspnea, Denies wheezing and Denies other (shortness of breath) Musc Denies numbness and Denies tingling Neuro Denies dizziness, Denies headache(s), Denies numbness, Denies tingling and Denies weakness Psych Denies anxiety and Denies depression Endo Denies fatigue Aller/Immun Denies wheezing Physical exam (Primary Care) Tobacco/Smoking Status: Tobacco use Status Tobacco use date assessed 02/12/24 02/12/24 16:28 Patient Tobacco Use Status Never used Tobacco 02/12/24 16:28 e-Cigarette/Vaping Use Never Used 02/12/24 16:28 Thrive Assessment: Date of Thrive Assessment Date Thrive assessed 05/19/23 02/12/24 16:28 Telehealth Telehealth Telehealth Platform: Telephone Location of provider rendering services: practice address Location of patient: address on file Patient Identification confirmed using: Name, : Yes Telehealth method: voice only Patient verbally consented to treatment: Yes Patient verbally consented to billing insurance company: Yes Patient informed of any privacy concerns related to visit: Yes Minutes spent on Phone/Video with Pt.: 11 Coding Level of Care Code Tele Est Pt Level 2 (28813) Diagnoses Renal failure N19 Hypertension I10 Hyperlipidemia E78.5 Assessment & Plan Assessment & Plan (1) Renal failure: Code(s): N19 - Unspecified kidney failure Category: Medical Plan: Creatinine?level?continues?to?rise?despite?discontinuing?hydrochlorothiazide?and ?using?amlodipine Patient?is?still?on?lisinopril?20?mg?daily?and?also?a?low?dose?of?metformin. Will?decrease?lisinopril.??Will?likely?consider?stopping?metformin?at?his?next?v isit?if?creatinine?level?not?begin?decreasing. Will?refer?to?Nephrology Advised?patient?to?hydrate?well (2) Hypertension: Code(s): I10 - Essential (primary) hypertension Category: Medical Plan: Patient?has?received?a?blood?pressure?monitor?and?I?have?asked?him?to?check?his? blood?pressures Decreasing?lisinopr il?as?creatinine?has?been?rising.??Increasing?his?amlodipine?to?compensate?this Will?get?him?back?in?1?month?to?follow- up?ensure?blood?pressures?remain?controlled. (3) Hyperlipidemia: Code(s): E78.5 - Hyperlipidemia, unspecified Category: Medical Plan: Lipids?are?well?controlled?but?patient?notes?that?his?atorvastatin?causes?queasi ness Will?decrease?atorvastatin?from?20?mg?to?10?mg?q.p.m. Orders: Referrals Nephrology Referral N19 - Unspecified kidney failure Medications: Changed From amlodipine 5 mg PO DAILY 90 days 90 tabs 2RF To amlodipine 10 mg PO DAILY 90 tabs 2RF 90 days From lisinopril 20 mg PO DAILY 90 days 90 tabs 2RF To lisinopril 10 mg PO DAILY 90 tabs 2RF 90 days From atorvastatin 20 mg PO BEDTIME 90 days 90 tabs 2RF To atorvastatin 10 mg (1/2 x 20 mg) PO BEDTIME 45 tabs 2RF 90 days
== END ==
LOC: HO.HMCFM 16:30
PROVIDERS: PCP Family Medicine; Visit Provider Family Medicine
DX: I12.9 Hypertensive chronic kidney disease with stage 1 through stage 4 chronic kidney disease, or unspecified chronic kidney disease (principal); N19 Unspecified kidney failure; E78.5 Hyperlipidemia, unspecified

== ENCOUNTER → 2024-02-19 15:18 | Outpatient (BNVA) | payer MEDICARE, SELFPAY | PROVIDERS: PCP Family Medicine; Visit Provider Family Medicine ==

== ENCOUNTER → 2024-02-19 15:18 | Outpatient (AMB) | payer MEDICARE, SELFPAY ==
--- NOTE | 2024-02-19 15:08 | MHC.PC.OV ---
Intake Visit Reasons: ref questions/medication questions(call twice) Intake Note: f/u question on prescriptions and kidney health pt would like to know the readings for kidney health. pt would like to discuss why hes put on a medication that could potentially harm his kidney Allergies No Known Allergies Allergy (Verified 02/12/24 16:26) Tobacco use date assessed: 02/12/24 Dental Screening Dental Screen Date: 05/19/23 HPI ref questions/medication questions(call twice) HPI Details 68 y/o male presents today to f/u meds. Notes he has been concerned about renal failure and questions his meds. He has been especially anxious about the diagnosis of renal failure as a loved one had from kidney issues. [facility] Medical History (Updated 01/12/24 @ 08:59 by Sergo Lakhani) High cholesterol Glaucoma Surgical History H/O tooth extraction History of tonsillectomy Social History (Updated 02/12/24 @ 16:28 by Jinny Davies CMA) Household Members: None Housing: House Are you a primary school child care attendant to a significant other at home: No Do you presently have visiting nurse or other home services: No 75 years or older and lives alone: No Alcohol intake: current Comment: 3 beers a day. Patient Tobacco Use Status: Never used Tobacco e-Cigarette/Vaping Use: Never Used Substance Use Type: Marijuana service: No Current occupational status: retired Cognitive needs: No Hearing needs: No Vision needs: Yes (Patient wears glasses.) Questionnaire Thrive Questionnaire Date Thrive assessed: 05/19/23 ADILENE-7 AMB Questionnaire ADILENE-7 Date ADILENE - 7 assessed: 05/19/23 Source: Developed by Drs. Atilio Vega, Clarita Dorantes, Bello Irene and colleagues, with an educational donnell from [employer]. Physical exam (Primary Care) Tobacco/Smoking Status: Tobacco use Status Tobacco use date assessed 02/12/24 02/19/24 15:15 Patient Tobacco Use Status Never used Tobacco 02/19/24 15:15 e-Cigarette/Vaping Use Never Used 02/19/24 15:15 Thrive Assessment: Date of Thrive Assessment Date Thrive assessed 05/19/23 02/19/24 15:15 Telehealth Telehealth Telehealth Platform: Telephone Location of provider rendering services: practice address Location of patient: address on file Patient Identification confirmed using: Name, : Yes Telehealth method: voice only Patient verbally consented to treatment: Yes Patient verbally consented to billing insurance company: Yes Patient informed of any privacy concerns related to visit: Yes Minutes spent on Phone/Video with Pt.: 20 Coding Level of Care Code Tele Est Pt Level 3 (18568) Diagnoses Renal failure N19 Hypertension I10 Hyperlipidemia E78.5 Assessment & Plan Assessment & Plan (1) Renal failure: Code(s): N19 - Unspecified kidney failure Category: Medical Plan: I?had?a?long?discussion?with?patient?regarding?his?renal?function. I?have?made?a?referral?to?Nephrology?as?his?creatinine?level?had?risen?twice?and?then?remained?around?2.02?despite?changing?his?medications. Patient?notes?that?had?a?partner?who?saw?a?transplant registered nurse?and?had?an?unfortunate?outcome?so?he?is?apprehensive?about?seeing?the?transplant registered nurse. We?had?made?further?adjustments?at?his?last?visit.??We?discussed?rechecking?in?1?month.??If?he?has?not?had?improvements?in?his?renal?function,?he?agrees?to?see?the?transplant registered nurse.??Will?hold?off?until?then. To?review,?we?have?discontinued?hydrochlorothiazide?as?his?renal?function?had?worsened?after?adding?this. Added?some?amlodipine?to?compensate?and?controlled?blood?pressure.? Creatinine?level?continued?to?rise?however?so?also?decreased?his?lisinopril?at?the?following?visit. Refer?him?to?Nephrology?at?that?time. Patient?is?now?taking?amlodipine?10?mg?daily,?lisinopril?10?mg?daily?for?blood?pressure. He?is?still?on?metformin?only?250?mg?twice?a?day?and?we?will?likely?discontinue?this?at?his?next?visit?and?use?other?medications.??He?is?taking?glipizide ER?2.5?mg?daily. Will?see?him?back?in?3-4?weeks?for?close?follow-up.??He?will?get?his?labs?drawn?a?few?days?prior?to?this?to?recheck?renal?function. (2) Hypertension: Code(s): I10 - Essential (primary) hypertension Category: Medical Plan: As?above (3) Hyperlipidemia: Code(s): E78.5 - Hyperlipidemia, unspecified Category: Medical Plan: Patient?was?wondering?about?his?atorvastatin. We?decreased?this?from?20?mg?to?10?mg?(will?break?his?20?mg?tablets?in?half) because?he?was?having?some?abdominal?discomfort. Subsequent?to?his?next?visit?we?will?order?lipids?again?and?follow-up?on?this?at?that following?visit - if?lipids?are?still?controlled,?will?change?to?a?10?mg?tablet.??Otherwise?may?need?to?increase?this?again?or?make?some?other?arrangement.
== END ==
LOC: HO.HMCFM 15:18
PROVIDERS: PCP Family Medicine; Visit Provider Family Medicine
DX: I10 Essential (primary) hypertension (principal); N19 Unspecified kidney failure; E78.5 Hyperlipidemia, unspecified

== ENCOUNTER 2024-11-10 11:08 | Outpatient (REF) | payer MEDICARE, SELFPAY ==
[2024-11-10 14:56] LABS: Alanine Aminotransferase 12 U/L (0-40); Albumin Level 4.5 g/dL (3.5-5.0); Alkaline Phosphatase 53 U/L (39-117); Anion Gap 11 (12-20); Aspartate Amino Transferase 17 U/L (5-37); Blood Urea Nitrogen 19 mg/dL (9-16); Calcium 9.8 mg/dL (8.4-10.2); Carbon Dioxide 26 mmol/L (22-29); Chloride 104 mmol/L (96-108); Estimated Glomerular Filt Rate 43; Potassium 4.3 mmol/L (3.3-5.1); Sodium 137 mmol/L (135-145); Total Protein 7.3 g/dL (6.5-8.0)
== END 2024-11-10 11:09 | disposition home or self-care (01) ==
LOC: HO.WFDLDS 11:08
PROVIDERS: Visit Provider Family Medicine
DX: N19 Unspecified kidney failure (principal)
CPT/HCPCS: 36415; 80053

== ENCOUNTER 2024-11-21 08:30 | Outpatient (AMB) | payer MEDICARE, SELFPAY ==
--- NOTE | 2024-11-21 08:35 | MHC.PC.OV ---
Vital Signs 11/21/24 08:37 Height 5 ft 7 in Weight 191 lb BMI 29.9 BP 140/68 H Blood Pressure Location Rt brachial Position Sitting Respiration 14 Pulse 93 Pulse Source Pulse Oximeter Temp 97.7 F Temp Source Temporal Artery Scan Pulse Oximetry (%) 97 Oxygen Delivery Method Room Air Intake Visit Reasons: f/u diabetes, chronic conditions Intake Note: Shad presents in the office today to follow up to his diabetes. Allergies No Known Allergies Allergy (Verified 11/21/24 08:36) Medication List - Last Reconciled 11/21/24 by Tavo Cortez MD amlodipine 10 mg PO DAILY 90 days atorvastatin 10 mg (1/2 x 20 mg) PO BEDTIME 90 days glipizide ER 2.5 mg PO QAM 30 days lisinopril 10 mg PO DAILY 90 days metformin 250 mg (1/2 x 500 mg) PO BID 90 days sildenafil 50 mg PO DAILY PRN 30 days Tobacco use date assessed: 11/21/24 Fall risk assessment: No Falls in past year Last assessed Fall Risk: 11/21/24 Dental Screening Dental Screen Date: 11/21/24 Did you have a dental visit in the last 12 months?: Yes Did you have a dental problem in the last 6 months where you did not have access to dental care?: No Was dental information given to patient?: Patient has dentist HPI f/u diabetes, chronic conditions HPI Details 69 y/o male presents to f/u diabetes, chronic conditions. A1c today 5.6%. He is on glipizide 2.5mg, metformin 250mg b.i.d. BP today 140/68, 93p. He is on lisinopril 10mg daily, amlodipine 10mg daily. Hx of CKD. HPI Comments History of Present Illness Details Documentation assistance for Tavo Cortez MD, was provided by Sergo Lakhani,? [employer] on 11/21/2024 at 9:13 AM EST. I, Dr. Cortez, have read, observed, and verified documentation. ?? [facility] Medical History (Updated 11/21/24 @ 08:42 by Tavo Cortez MD) High cholesterol Glaucoma Surgical History H/O tooth extraction History of tonsillectomy Social History (Updated 09/22/25 @ 08:37 by Judy Luz [facility]) Household Members: None Housing: House Are you a primary respiratory care instructor to a significant other at home: No Do you presently have visiting nurse or other home services: No 75 years or older and lives alone: No Alcohol intake: current Comment: 3 beers a day. Patient Tobacco Use Status: Never used Tobacco e-Cigarette/Vaping Use: Never Used Second Hand Smoke Exposure: No Use of substances other than those prescribed or required for medical reasons: Yes Substance Use Type: Marijuana service: No Current occupational status: retired Cognitive needs: No Hearing needs: No Vision needs: Yes (Patient wears glasses.) Questionnaire Thrive Questionnaire Date Thrive assessed: 01/12/24 I am a: Patient What is your living situation today?: I have a steady place to live Within the past 12 months, did the food you bought not last and you didn't have the money to get more?: Never true Within the past 12 months, did you worry whether your food would run out before you got money to buy more?: Never true Do you have trouble paying for medicines?: No Do you have trouble getting transportation to medical appointments?: No Do you have trouble paying your heating and electricity bill?: No Do you have trouble taking care of your child, family member or friend?: No Do you have trouble with day-to-day activities such as bathing, preparing meals, shopping, managing finances, etc.?: No Are you currently unemployed and looking for a job?: I choose not to answer this question Are you interested in more education?: No Please select the resources that you would like help with: None Currently or been in a relationship where the following occur: No concerns reported THRIVE Score: 0 ADILENE-7 AMB Questionnaire ADILENE-7 Date ADILENE - 7 assessed: 05/19/23 Source: Developed by Drs. Atilio Vega, Clarita Dorantes, Bello Irene and colleagues, with an educational donnell from [employer]. Review of Systems Const Denies chills, Denies fatigue, Denies fever(s), Denies headache(s) and Denies weakness ENT Denies dizziness and Denies headache(s) Card Denies dyspnea Resp Denies cough, Denies dyspnea, Denies wheezing and Denies other (shortness of breath) Musc Denies numbness and Denies tingling Neuro Denies dizziness, Denies headache(s), Denies numbness, Denies tingling and Denies weakness Psych Denies anxiety and Denies depression Endo Denies fatigue Aller/Immun Denies wheezing Physical exam (Primary Care) Vital Signs: Last Vital Signs Temp 97.7 F 11/21/24 08:37 Pulse 93 11/21/24 08:37 Resp 14 11/21/24 08:37 BP 140/68 H 11/21/24 08:37 Pulse Ox 97 11/21/24 08:37 Oxygen Delivery Method Room Air 11/21/24 08:37 BMI result Body Mass Index 29.9 Tobacco/Smoking Status: Tobacco use Status Tobacco use date assessed 11/21/24 11/21/24 08:39 Patient Tobacco Use Status Never used Tobacco 11/21/24 08:39 e-Cigarette/Vaping Use Never Used 11/21/24 08:39 Thrive Assessment: Date of Thrive Assessment Date Thrive assessed 01/12/24 11/21/24 08:39 Currently or been in a relationship where the following occur: No concerns reported Const General: well developed; No acute distress Nutritional Appearance: well nourished Orientation/consciousness: patient oriented x3 HENMT Head: Yes normocephalic and Yes atraumatic Eyes General: appearance normal, both eyes and all related structures Pupils: Equal, round and reactive pupils present EOM: EOMs intact bilaterally Resp Effort & Inspection: normal respiratory effort Auscultation: clear to auscultation bilaterally Cardio Rate: regular rate Rhythm: regular rhythm Heart sounds: S1 normal heart sound present, S2 normal heart sound present, no gallops, no murmurs and no rubs Neuro General: patient oriented x3 and gait normal Cranial nerves: Yes Equal, round and reactive pupils present Psych Affect: normal affect Results AMB Hemoglobin A1c AMB Hemoglobin A1c 5.6 % Last Edit by Judy Luz CMA on 11/21/24 08:53 Results Reviewed Results Reviewed: Laboratory Last Values Hgb A1c (Clinic) 5.6 % (4.0-6.0) 11/21/24 08:43 Coding Level of Care Code Est Pt Level 4 (87576) Diagnoses Hypertension I10 Diabetes E11.9 Chronic kidney disease N18.9 Hyperlipidemia E78.5 Assessment & Plan Assessment & Plan (1) Hypertension: Code(s): I10 - Essential (primary) hypertension Category: Medical Plan: Blood pressure is a little too high. He is taking amlodipine and lisinopril as prescribed. Would avoid increasing lisinopril further as he has had issues with renal function Adding a small dose metoprolol. Continue lisinopril and amlodipine as prescribed (2) Diabetes: Code(s): E11.9 - Type 2 diabetes mellitus without complications Category: Medical Plan: A1c today: 5.6% He is taking metformin and glipizide as prescribed Continue current medication regimen Visit with his eye doctor in July showed no diabetic retinopathy. (3) Chronic kidney disease: Code(s): N18.9 - Chronic kidney disease, unspecified Category: Medical Plan: Had adjusted patient's medications at last visit. Creatinine level is improved Recommend better blood pressure control Hydrate well Avoiding NSAIDs Will continue monitor (4) Hyperlipidemia: Code(s): E78.5 - Hyperlipidemia, unspecified Category: Medical Plan: Taking atorvastatin Lipids at last visit were well controlled. Will recheck prior to next visit Orders: Orders AMB Hemoglobin A1c Today E11.9 - Type 2 diabetes mellitus without complications Comprehensive [place]. Panel Fast Today Z00.00 - Encounter for general adult medical examination without abnormal findings Complete Blood Count Auto Diff Today Z00.00 - Encounter for general adult medical examination without abnormal findings Lipid Panel Today Z00.00 - Encounter for general adult medical examination without abnormal findings Microalbumin, Random (w Creat) Today I10 - Essential (primary) hypertension Prostate Specific Antigen Scr Today Z12.5 - Encounter for screening for malignant neoplasm of prostate UA CC w/rflx Micro + Cult Today Z00.00 - Encounter for general adult medical examination without abnormal findings Medications: New metoprolol succinate ER 25 mg PO DAILY 90 tabs 3RF 90 days
[2024-11-21 08:37] VITALS: BP 140/68; PULSE 93; RESP 14; TEMP 36.5; O2SAT 97; BMI 29.9
== END 2024-11-21 09:17 | disposition home or self-care (01) ==
LOC: HO.HMCFM 08:31
PROVIDERS: PCP Family Medicine; Visit Provider Family Medicine
DX: I12.9 Hypertensive chronic kidney disease with stage 1 through stage 4 chronic kidney disease, or unspecified chronic kidney disease (principal); E11.9 Type 2 diabetes mellitus without complications; N18.9 Chronic kidney disease, unspecified; E78.5 Hyperlipidemia, unspecified

== ENCOUNTER → 2024-11-21 08:30 | Outpatient (BNVA) | payer MEDICARE, SELFPAY | PROVIDERS: PCP Family Medicine; Visit Provider Family Medicine | DX: E11.22 Type 2 diabetes mellitus with diabetic chronic kidney disease (principal); I12.9 Hypertensive chronic kidney disease with stage 1 through stage 4 chronic kidney disease, or unspecified chronic kidney disease; N18.9 Chronic kidney disease, unspecified; E78.5 Hyperlipidemia, unspecified | CPT/HCPCS: 83036; 99212 ==